=== PATIENT | male | born 1950 | race Caucasian/White ===

== ENCOUNTER → 2021-10-03 | Outpatient (CLI) | payer OTHER ==
[~2021-10-03] MED LIST: LEVSOD50 PO; SIMV5 PO; TESTOSTERONE
== END | disposition home or self-care (01) ==
LOC: LAB SHORT 15:34 → LAB 15:34
DX: N39.0 Urinary tract infection, site not specified (principal)
CPT/HCPCS: 87086

== ENCOUNTER → 2023-02-27 | Outpatient (CLI) | payer OTHER ==
[2023-02-27 14:38] LABS: Alanine Aminotransfer (ALT/SGP 53 U/L (12-78); Albumin, Blood 3.5 g/dL (3.4-5.0); Albumin/Globulin Ratio 1.1 (0.8-1.8); Alk Phos 72 U/L (50-136); Anion Gap 8 mmol/L (6-16); Aspartate Aminotrans (AST/SGOT 31 U/L (12-37); Bilirubin, Total 0.5 mg/dL (0.1-1.0); Blood Urea Nitrogen 15 mg/dL (8-24); Bun/Creatinine Ratio 11.5 (12.0-20.0); CHOL/HDL RATIO 3.1; CO2, Blood 24 mmol/L (21-32); Calcium, Blood 9.8 mg/dL (8.5-10.1); Chloride, Blood 107 mmol/L (98-108); Cholesterol 132 mg/dL (50-200); Creatinine, Blood 1.31 mg/dL (0.60-1.20); Globulin, Blood 3.3 g/dL (2.2-4.0); Glomerular Filtration Rate 57 (60-); Glucose, Blood 145 mg/dL (70-99); HDL Cholesterol 42 mg/dL (>39); LDL/HDL RATIO 1.3; Low Density Lipoprotein Chol 53 mg/dL (0-110); Phosphorus, Blood 2.1 mg/dL (2.5-4.9); Potassium, Blood 4.2 mmol/L (3.5-5.5); Sodium, Blood 139 mmol/L (136-145); Total Protein, Blood 6.8 g/dL (6.4-8.2); Triglycerides 185 mg/dL (30-160); Very Low Density Lipoprot Chol 37 mg/dL (6-32)
== END | disposition home or self-care (01) ==
LOC: LAB 14:15 → LAB SHORT 14:15
PROVIDERS: Family Medicine
DX: E78.2 Mixed hyperlipidemia (principal); E11.22 Type 2 diabetes mellitus with diabetic chronic kidney disease; N18.9 Chronic kidney disease, unspecified; E83.39 Other disorders of phosphorus metabolism; E11.42 Type 2 diabetes mellitus with diabetic polyneuropathy; E11.21 Type 2 diabetes mellitus with diabetic nephropathy; E11.69 Type 2 diabetes mellitus with other specified complication
CPT/HCPCS: 80053; 80061; 83036; 84100; 84403

== ENCOUNTER → 2024-06-17 | Outpatient (CLI) | payer OTHER ==
[2024-06-21 23:33] LABS: CALPROTECTIN,FECAL 32 ug/g (<=49)
== END ==
LOC: LAB 17:23 → LAB SHORT 17:23
PROVIDERS: Physician Assistant Medical
DX: D64.9 Anemia, unspecified (principal)
CPT/HCPCS: 83993

== ENCOUNTER 2024-07-30 08:36 | Day surgery (SDC) | payer OTHER ==
[~2024-07-30] VITALS: Ht 180.3 cm; Wt 120.7 kg
[~2024-07-30 08:36] MED LIST changes: +Lactated Ringer's 1,000 ML IV ONE
[2024-07-30] MEDS ORDERED: DEPO-TESTO200 MG/1 M (09:53)
[2024-07-30] MEDS ORDERED: ATOR10 (09:56)
[2024-07-30] MEDS ORDERED: Prozac20 MG PO (09:58)
[2024-07-30] MEDS ORDERED: LEVSOD100 (09:59)
[2024-07-30] MEDS ORDERED: CYCL0.05OP (10:00)
[2024-07-30] MEDS ORDERED: METF500C (10:00)
[2024-07-30] MEDS ORDERED: Hytrin2 MG (10:01)
[2024-07-30] MEDS ORDERED: Prednisolone Ace5 ML (10:03)
[2024-07-30] MEDS ORDERED: propofoL 50 ML IV ONE ×2 (10:05→11:39)
[2024-07-30] MEDS ORDERED: Lidocaine HCl 4% 5 ML SDA ONE (10:07)
[2024-07-30] MEDS ORDERED: Ipratropium/Albuterol SulF 2.5-0.5MG/3 ML Amp ONE (10:41)
[2024-07-30] MEDS ORDERED: Lactated Ringer's 1,000 ML IV ONE (10:52)
[2024-07-30 12:24] VITALS: BP 110/78
== END 2024-07-30 12:37 | disposition home or self-care (01) ==
LOC: ORSCSDS 08:36
PROVIDERS: Internal Medicine Gastroenterology
PROC: 0DBP8ZX Excision of Rectum, Via Natural or Artificial Opening Endoscopic, Diagnostic (ICD-10-PCS; principal; 2024-07-30 10:00)
PROC: 0DBM8ZX Excision of Descending Colon, Via Natural or Artificial Opening Endoscopic, Diagnostic (ICD-10-PCS; principal; 2024-07-30 10:00)
PROC: 0DBK8ZX Excision of Ascending Colon, Via Natural or Artificial Opening Endoscopic, Diagnostic (ICD-10-PCS; principal; 2024-07-30 10:00)
PROC: 0DBH8ZX Excision of Cecum, Via Natural or Artificial Opening Endoscopic, Diagnostic (ICD-10-PCS; principal; 2024-07-30 10:00)
PROC: 0DBL8ZX Excision of Transverse Colon, Via Natural or Artificial Opening Endoscopic, Diagnostic (ICD-10-PCS; principal; 2024-07-30 10:00)
PROC: 0DJ08ZZ Inspection of Upper Intestinal Tract, Via Natural or Artificial Opening Endoscopic (ICD-10-PCS; principal; 2024-07-30 10:00)
DX: R63.4 Abnormal weight loss (principal); R19.5 Other fecal abnormalities; D12.2 Benign neoplasm of ascending colon; D12.4 Benign neoplasm of descending colon; D12.8 Benign neoplasm of rectum; K63.5 Polyp of colon; K57.30 Diverticulosis of large intestine without perforation or abscess without bleeding; K64.4 Residual hemorrhoidal skin tags; R93.89 Abnormal findings on diagnostic imaging of other specified body structures; R19.4 Change in bowel habit; D64.9 Anemia, unspecified; G47.33 Obstructive sleep apnea (adult) (pediatric); E11.22 Type 2 diabetes mellitus with diabetic chronic kidney disease; I12.9 Hypertensive chronic kidney disease with stage 1 through stage 4 chronic kidney disease, or unspecified chronic kidney disease; N18.30 Chronic kidney disease, stage 3 unspecified; E78.5 Hyperlipidemia, unspecified; E66.01 Morbid (severe) obesity due to excess calories; Z68.37 Body mass index [BMI] 37.0-37.9, adult; F17.220 Nicotine dependence, chewing tobacco, uncomplicated; Z79.84 Long term (current) use of oral hypoglycemic drugs; Z79.899 Other long term (current) drug therapy
CPT/HCPCS: 82947; 88305; J2003; J2704; J7120

== ENCOUNTER → 2024-08-11 | Outpatient (CLI) | payer OTHER ==
[~2024-08-11] MED LIST changes: +ATOR10 PO; +CYCL0.05OP BOTHEYES; +DEPO-TESTO200 MG/1 M IM; +JARDIANCE25 MG PO; +LEVO T PO; +LOSA50 PO; -Lactated Ringer's 1,000 ML IV ONE; +METF500C PO; +MIRALAX11914 PO; +Prednisolone Ace5 ML LEFTEYE; +Prozac20 MG PO; +Terazosin HCl10 MG PO
[2024-08-11 15:22] LABS: BASOPHILS ABSOLUTE AUTO 0.13 K/mm3 (0.00-0.23); BASOPHILS PERCENT AUTO 1 % (0-2); EOSINOPHILS ABSOLUTE AUTO 1.25 K/mm3 (0.00-0.68); EOSINOPHILS PERCENT AUTO 12 % (0-6); Hemoglobin 10.5 g/dL (13.5-17.5); IMMATURE GRAN ABSOLUTE AUTO 0.03 K/mm3 (0.00-0.10); IMMATURE GRAN PERCENT AUTO 0 % (0-1); LYMPHOCYTES ABSOLUTE AUTO 1.68 K/mm3 (0.84-5.20); LYMPHOCYTES PERCENT AUTO 15 % (21-46); MONOCYTES ABSOLUTE AUTO 0.93 K/mm3 (0.16-1.47); MONOCYTES PERCENT AUTO 9 % (4-13); Mean Corpuscular HGB 25.4 pg (26.0-34.0); Mean Corpuscular HGB Conc 30.9 g/dL (31.5-36.5); Mean Corpuscular Volume 82 fL (80-100); Mean Platelet Volume 11.1 fL (9.1-12.4); NEUTROPHILS ABSOLUTE AUTO 6.86 K/mm3 (1.96-9.15); NEUTROPHILS PERCENT AUTO 63 % (41-73); Platelet Count 342 K/mm3 (150-400); RDW Coefficient Variation 16.9 % (11.7-14.2); RDW Standard Deviation 50.4 fL (35.1-46.3); Red Blood Cell Count 4.14 M/mm3 (4.30-5.90); White Blood Cell Count 10.88 K/mm3 (4.00-11.30)
[2024-08-11 15:32] LABS: Albumin, Blood 2.1 g/dL (3.4-5.0); Albumin/Globulin Ratio 0.4 (0.8-1.8); Bilirubin, Total 0.5 mg/dL (0.1-1.0); Bun/Creatinine Ratio 14.8 (12.0-20.0); Calcium, Blood 10.8 mg/dL (8.5-10.1); Creatinine, Blood 1.15 mg/dL (0.60-1.20); Globulin, Blood 5.6 g/dL (2.2-4.0); Potassium, Blood 4.4 mmol/L (3.5-5.5); Total Protein, Blood 7.7 g/dL (6.4-8.2)
[2024-08-11 15:34] LABS: Cancer Antigen 19-9 72.1 U/mL (2.0-37.0); Carcinoembryonic Antigen 0.8 ng/mL (0.0-3.0)
== END | disposition home or self-care (01) ==
LOC: LAB SHORT 12:26 → LAB 12:26
PROVIDERS: Internal Medicine Hematology & Oncology
DX: C78.7 Secondary malignant neoplasm of liver and intrahepatic bile duct (principal); R97.0 Elevated carcinoembryonic antigen [CEA]
CPT/HCPCS: 80053; 82378; 85025; 86301

== ENCOUNTER 2024-08-17 15:23 | Observation (INO) | payer OTHER ==
[~2024-08-17] VITALS: Ht 180.3 cm; Wt 119.2 kg
[~2024-08-17 15:23] MED LIST changes: -JARDIANCE25 MG PO; -LOSA50 PO; -MIRALAX11914 PO
[2024-08-17] MEDS ORDERED: NS 500 ML IV SCH (16:35)
[2024-08-17 17:15] LABS: Calcium, Blood 10.6 mg/dL (8.5-10.1); Magnesium, Blood 1.9 mg/dL (1.6-2.4); Potassium, Blood 4.2 mmol/L (3.5-5.5)
[2024-08-17 17:19] LABS: BASOPHILS ABSOLUTE AUTO 0.11 K/mm3 (0.00-0.23); BASOPHILS PERCENT AUTO 1 % (0-2); EOSINOPHILS ABSOLUTE AUTO 0.79 K/mm3 (0.00-0.68); EOSINOPHILS PERCENT AUTO 8 % (0-6); Hematocrit 31.1 % (37.0-53.0); Hemoglobin 9.9 g/dL (13.5-17.5); IMMATURE GRAN ABSOLUTE AUTO 0.05 K/mm3 (0.00-0.10); IMMATURE GRAN PERCENT AUTO 1 % (0-1); LYMPHOCYTES ABSOLUTE AUTO 1.55 K/mm3 (0.84-5.20); LYMPHOCYTES PERCENT AUTO 16 % (21-46); MONOCYTES ABSOLUTE AUTO 0.86 K/mm3 (0.16-1.47); MONOCYTES PERCENT AUTO 9 % (4-13); Mean Corpuscular HGB 25.3 pg (26.0-34.0); Mean Corpuscular HGB Conc 31.8 g/dL (31.5-36.5); Mean Corpuscular Volume 79 fL (80-100); NEUTROPHILS ABSOLUTE AUTO 6.43 K/mm3 (1.96-9.15); NEUTROPHILS PERCENT AUTO 66 % (41-73); RDW Standard Deviation 48.6 fL (35.1-46.3); Red Blood Cell Count 3.92 M/mm3 (4.30-5.90); White Blood Cell Count 9.79 K/mm3 (4.00-11.30)
[2024-08-17 17:25] LABS: Source, Urine Clean Catch
[2024-08-17 17:27] LABS: Appearance, Urine Clear (Clear); Bilirubin, Urine Neg (Neg); Blood, Urine Neg (Neg); Color, Urine Yellow (P-Yellow); Glucose Qualitative, Urine Neg (Neg); Ketones, Urine Neg (Neg); Leukocyte Esterase, Urine 1+ (Neg); Nitrite, Urine Neg (Neg); Protein, Urine Neg (Neg); Urobilinogen, Urine 1+ (Normal)
[2024-08-17 17:59] LABS: Bacteria Many /hpf; Calcium Oxalate Crystals Few /hpf; Red Blood Cells, Urine 0-2 /hpf (0-2); Squamous Epithelial Cells Rare /hpf (Few)
[2024-08-17 18:09] LABS: Influenza A, PCR NEGATIVE (NEGATIVE); Influenza B, PCR NEGATIVE (NEGATIVE); Resp Syncytial Virus, PCR NEGATIVE (NEGATIVE); SARS-Cov-2 (COVID-19) PCR, MMC NEGATIVE (NEGATIVE)
[2024-08-17] MEDS ORDERED: Morphine Sulfate 20 MG/1ML 1 ML Oral Syringe SL PRN (19:50)
[2024-08-17] MEDS ORDERED: Morphine Sulfate 10 MG/ML 1MLSYR IV PRN (19:55)
[2024-08-17] MEDS ORDERED: Ondansetron HCl 2 MG / ML 2ML Vial IV PRN (19:55)
[2024-08-17] MEDS ORDERED: Sennosides 8.6 MG Tab PO SCH (21:00)
[2024-08-17] MEDS ORDERED: Docusate Sodium 100 MG Cap PO SCH (21:00)
[2024-08-17] MEDS ORDERED: LOSA50 PO (22:14)
[2024-08-17] MEDS ORDERED: JARDIANCE25 MG PO (22:17)
[2024-08-17] MEDS ORDERED: MIRALAX11914 PO (22:17)
[2024-08-17] MEDS ORDERED: Acetaminophen 325 MG TABLET PO PRN (23:25)
[2024-08-18] MEDS ORDERED: Docusate Sodium 100 MG Cap PO ONE (00:20)
[2024-08-18] MEDS ORDERED: Sennosides 8.6 MG Tab PO ONE (00:20)
--- NOTE | 2024-08-18 05:12 | NUR ---
SHIFT SUMMARY NOC PT A/O X 4. PLEASANT AND COOPERATIVE WITH CARE. 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 DURING ADMIT ASSESSMENT PT ENDORSES WT LOSS OF AT LEAST 70LBS OVER PAST 3 MONTHS DUE TO POOR APPETITE RELATED TO CANCER. PT IS VERY WEAK. PT HAS CPAP SETUP FOR SLEEPING. PT IS BEING FOLLOWED BY DR POLLACK [facility], BUT HAS NOT HAD ANY TX YET. PT IS BEDSIDE AND STAYED NIGHT WITH PT. PT CURRENTLY RESTING WITH BED IN LOWEST POSITION, AND CALL LIGHT WITHIN REACH.
[2024-08-18 10:21] LABS: Source, Urine Clean Catch
[2024-08-18 10:25] LABS: Appearance, Urine Clear (Clear); Bilirubin, Urine Neg (Neg); Blood, Urine Neg (Neg); Color, Urine Yellow (P-Yellow); Glucose Qualitative, Urine Neg (Neg); Ketones, Urine Neg (Neg); Leukocyte Esterase, Urine 1+ (Neg); Nitrite, Urine Neg (Neg); Protein, Urine Neg (Neg); Specific Gravity, Urine 1.015 (1.003-1.022); Urobilinogen, Urine NORM (Normal)
[2024-08-18 10:36] LABS: Red Blood Cells, Urine 0-2 /hpf (0-2); Squamous Epithelial Cells Not Seen /hpf (Few); White Blood Cells, Urine 0-2 /hpf (0-5)
[2024-08-18 10:37] LABS: Calcium Oxalate Crystals Rare /hpf
[2024-08-18 10:38] LABS: Bacteria Not Seen /hpf
[2024-08-18 11:47] VITALS: BP 127/58
[2024-08-18] MEDS ORDERED: MetFORMIN HCl 500 mg PO SCH (17:00)
--- NOTE | 2024-08-18 18:01 | NUR ---
SHIFT SUMMARY PT A&OX4 AND ANSWERS QUESTIONS APPROPRIATELY. PT RECEIVED SCHEDULED AND PRN MEDICATIONS. PT ON COMFORT CARE, NO COMPLAINTS OF PAIN AT THIS TIME. INDWELLING CATHETER PLACED FOR COMFORT. 14FR PLACED, 10ML WATER LEFT IN BALLOON. NO ADVERSE REACTIONS. PT SPENT MOST OF THE TIME IN BED RESTING. PT SPOUSE AT BEDSIDE MOST OF SHIFT. REPOSITIONED Q2HRS, LEFT IN A POSITION OF SAFETY WITH FALL PRECAUTIONS IN PLACE AND CALL LIGHT IN REACH.
[2024-08-18] MEDS ORDERED: DOXAZOSIN MESYLATE PO SCH (21:00)
[2024-08-18] MEDS ORDERED: FLUoxetine HCL 20 MG CAP PO SCH (21:00)
[2024-08-18] MEDS ORDERED: CYCLOSPORINE BOTHEYES SCH (21:00)
[2024-08-18 21:26] VITALS: BP 138/77
--- NOTE | 2024-08-19 04:38 | NUR ---
SHIFT SUMMARY PT IS A/OX4. ON COMFORT CARE. LEROY IN PLACE, PATENT AND DRAINING TO GRAVITY. URINE IS YELLOW WITH SOME RED DISCOLORATION AND RED SEDIMENT. PT AND REPORT THAT THIS IS NOT NEW AND WAS PRESENT PRIOR TO LEROY INSERTION. PT ON RA WHILE AWAKE AND USES CPAP AT NIGHT. PT RECIEVED X1 DOSE OF TYLENOL AND X1 DOSE OF MORPHINE PER MAR FOR A HEADACHE AND ABDOMINAL PAIN. AT BEDSIDE THROUGHOUT THIS SHIFT.
[2024-08-19] MEDS ORDERED: Pantoprazole Sodium 40 MG Injection IV SCH (06:00)
[2024-08-19] MEDS ORDERED: Levothyroxine Sodium 0.1 MG Tab PO SCH (06:00)
[2024-08-19] MEDS ORDERED: Calcium Carbonate 500 MG Tab Chew PO SCH (08:30)
[2024-08-19] MEDS ORDERED: Atorvastatin 10 MG Tab PO SCH (09:00)
[2024-08-19] MEDS ORDERED: Polyethylene Glycol 3350 17 gm PO SCH (09:00)
[2024-08-19] MEDS ORDERED: Phenazopyridine HCl 100 MG Tab PO SCH (09:00)
[2024-08-19] MEDS ORDERED: PrednisoLONE 1% Opth Susp 5 ML LEFTEYE SCH (09:00)
--- NOTE | 2024-08-19 11:55 | NUR ---
"SPiritual Care Pt. request | Comort Care Pt. is on a bi-pap and is mostly non responsive. Spouse is at bedside and welcomed my visit. acilitated a life review and considered matters of shay and belief. Spouse verbalized that they hoped to be discharged home to their with [facility]. Sought to normalize the Pt./family experience. Prayed for the the Pt. SPouse verbalized gratitude for the spiritual care visit."
--- NOTE | 2024-08-19 15:44 | NUR ---
SYMPTOM MANAGEMENT/SUPPORTIVE VISIT PRIMARY RN REPORTS PT'S URINARY PAIN HAS BEEN DIFFICULT TO MANAGE. PT CONFIRMED 8/10 PAIN WITH URINATION AT THE URETHRAL OPENING. 2/10 URETHRAL OPENING PAIN WHEN NOT ACTIVELY URINATING. HE DENIES TRAUMATIC LEROY CATHETER PLACEMENT. PT HAS RECEIVED TWO DOSES OF PYRIDIUM WITHOUT ANY MEANINGFUL RELIEF. POST COLLABORATION WITH PRIMARY RN AND PROVIDER, ONE TIME DOSE OF TORADOL WAS ORDERED. PLAN IS FOR PT TO D/C HOME TOMORROW @ 1130 WITH [facility].
[2024-08-19] MEDS ORDERED: Ketorolac Tromethamine 30mg Vial IV ONE (16:00)
--- NOTE | 2024-08-19 18:00 | NUR ---
PT HAS BEEN KEPT COMFORTABLE THROUGHOUT THE DAY. MAIN PROBLEM FOR PAIN HAS BEEN URINATING PT STATING HE CONTINUES TO HAVE BURING EVEN AFTER MEDICATION HAS BEEN GIVEN TO CORRECT THIS ON HIS EMAR. PALLIATIVE CARE NURSE BARBARA SPOKE WITH DR PERLA AND GOT A ONE TIME ORDER OF TRAMADOL. THIS WAS ADMINISTERED AND PT REPORTS THIS HAS HELPED. PT IS AT THIS TIME AOX4 AND COOPERATIVE OF CARE. PLAN IS TO DISCHARGE TOMORROW WITH HOSPICE. PT RESTING AT THIS TIME LEROY IS PATENT, CONTINUE TO HAVE RED IN THE URINE. CALL LIGHT WITHIN REACH WILL CONTINUE TO MONITOR.
--- NOTE | 2024-08-20 05:58 | NUR ---
AAOX4. BED REST. RA DURING THE DAY AND CPAP @ HS. URINARY LEROY CATHETER DRAING RED/ORANGE URINE. C/O GROIN AND BLADDER SPASMS. ADMIN PRN PAIN MEDICATION PER MAR AND PYRIDIUM. DC HOME TODAY WITH HOSPICE CARE @1130.
--- NOTE | 2024-08-20 07:39 | NUR ---
AM NOTE ASSUMED CARE OF PATIENT AT APPROX 0700. PATIENT RESTING IN BED. DENIES PAIN AT THIS TIME. PER REPORT, PATIENT HAS PLANNED DISCHARGE AT 1130 TO GO HOME ON HOSPICE.
--- NOTE | 2024-08-20 08:39 | NUR ---
COMFORT PATIENT MEDICATED FOR PAIN. ADJUSTED PATIENT TO SIT UP TO EAT. PATIENT DENIES ANY ADDITIONAL NEEDS. CALL LIGHT IN REACH. PATIENT STATES HE IS READY TO BE HOME.
[2024-08-20] MEDS ORDERED: Acetaminophen650 M1 PO (10:56)
[2024-08-20] MEDS ORDERED: MORP20L SL (10:57)
[2024-08-20] MEDS ORDERED: PHENA200 PO (10:57)
--- NOTE | 2024-08-20 11:54 | NUR ---
DISCHARGE PATIENT TRANSPORTED VIA WHEELCHAIR BY [facility]. DISCHARGE INSTRUCTIONS EXPLAINED TO PATIENT. PATIENT STATED UNDERSTANDING. GRANDDAUGHTER AT BEDSIDE HAD QUESTIONS ABOUT HOSPICE AND MEDICATIONS. ANSWERED THEM TO THE BEST OF THIS RN'S ABILITY. ASSURED PATIENT AND GRANDDAUGHTER THAT LEONARD WAS DOING INTAKE TODAY AND WOULD BE ABLE TO GIVE ADDITIONAL INFORMATION. IV REMOVED THIS AM WITHOUT DIFFICULTY. PATIENT MEDICATED FOR PAIN PRIOR TO TRANSFER DUE TO PAIN IN GROIN WITH MOVEMENT. BELONGINGS SENT WITH PATIENT. MEDICATIONS SENT TO [place] [facility] AT PATIENT REQUEST.
== END 2024-08-20 11:53 | disposition home or self-care (01) ==
LOC: ER 15:23 → MEDS 15:24 → ERHOLD 15:24 → MEDS 22:30 → ENPENDDIS 08-20 11:00 → MEDS 08-20 11:53
PROVIDERS: Emergency Medicine; Family Medicine; ADMIT Student in an Organized Health Care Education/Training Program
DX: R53.1 Weakness (principal); C80.1 Malignant (primary) neoplasm, unspecified; C79.9 Secondary malignant neoplasm of unspecified site; E78.00 Pure hypercholesterolemia, unspecified; E11.9 Type 2 diabetes mellitus without complications; E03.9 Hypothyroidism, unspecified; D63.8 Anemia in other chronic diseases classified elsewhere; E66.9 Obesity, unspecified; Z68.37 Body mass index [BMI] 37.0-37.9, adult; Z66 Do not resuscitate; Z79.890 Hormone replacement therapy; Z79.84 Long term (current) use of oral hypoglycemic drugs; Z79.899 Other long term (current) drug therapy
CPT/HCPCS: 0241U; 51701; 71045; 80048; 81001; 83735; 85025; 87086; 94660; 96374; 96375; 96376; 99285-25; A9270; G0378; J1885; J2270; J2405; J2470; J7030